=== PATIENT | male | born 1965 | race Caucasian/White ===

== ENCOUNTER 2018-09-03 10:18 | Emergency (ER) | payer OTHER ==
[~2018-09-03] VITALS: Ht 170.2 cm; Wt 78.3 kg
[2018-09-03 10:22] VITALS: BP 150/91; PULSE 77; RESP 18; Ht 170.2 cm; Wt 78.3 kg
--- NOTE | 2018-09-03 10:55 | ERD ---
ER Documentation Chief Complaint Chief Complaint lwer back chronic pain from an injry 2011. worst in the past 3 days HPI 52-year-old male with a history of chronic lower back pain presents ED with complaints of flareup of back pain over the past few days. Patient states that he had an injury that occurred at work in 2011 to his lower back and has had off-and-on pain over since. Patient denies any recent fall or injury to account for back pain today. Rates pain at a 7 out of 10 and states that it radiates down the left posterior leg. Admits to painful range of motion. Denies decreased range of motion, tingling, numbness, lack sensation, fever, chills, bowel/bladder incontinence, weakness, saddle paresthesias history of IV drug abuse and all other symptoms. No known drug allergies. ROS All systems reviewed and are negative except as per history of present illness. Medications Home Meds Active Scripts Naproxen* (Naprosyn*) 500 Mg Tablet, 500 MG PO BID PRN for PAIN AND/OR INFLAMMATION, #30 TAB Prov:AGUILAR VALDEZ PA-C 09/03/18 Methylprednisolone* (Medrol* DOSE PACK) 4 Mg/Dose-Pack Tab.ds.pk, 4 MG PO . DIRECTED for 5 Days, PACKET Prov:AGUILAR VALDEZ PA-C 09/03/18 Hydrocodone/Acetaminophen (Bucklin 5-325 Tablet) 1 Each Tablet, 1 TAB PO Q6H PRN for PAIN, #7 TAB Prov:AGUILAR VALDEZ PA-C 09/03/18 Cyclobenzaprine Hcl* (Cyclobenzaprine Hcl*) 10 Mg Tablet, 10 MG PO TID, #15 TAB Prov:AGUILAR VALDEZ PA-C 09/03/18 Allergies Allergies: Coded Allergies: No Known Allergy (Unverified , 09/03/18) PMhx/Soc History of Surgery: No Anesthesia Reaction: No Hx Neurological Disorder: No Hx Respiratory Disorders: No Hx Cardiac Disorders: No Hx Psychiatric Problems: Yes (ANXIETY) Hx Miscellaneous Medical Probl: No Hx Alcohol Use: No Hx Substance Use: No Hx Tobacco Use: No FmHx Family History: No diabetes Physical Exam Vitals Vital Signs Date Temp Pulse Resp B/P (MAP) Pulse Ox O2 O2 Flow FiO2 Time Delivery Rate 09/03/18 96.8 77 18 150/91 98 10:22 (110) Physical Exam Const: No acute distress Head: Atraumatic Eyes: Normal Conjunctiva ENT: Normal External Ears, Nose and Mouth. Neck: Full range of motion. No meningismus. Resp: Clear to auscultation bilaterally Cardio: Regular rate and rhythm, no murmurs Back: No midline or flank tenderness, there is mild tenderness palpation along the paravertebral muscles in the lumbar spine, no step-off deformities, positive straight leg raise on the left and side Ext: No cyanosis, or edema Neur: Awake and alert Psych: Normal Mood and Affect Results 24 hrs Current Medications Medications Dose Sig/Delagdo Start Time Status Last (Trade) Ordered Route PRN Stop Time Admin Dose Reason Admin 125 mg ONCE ONCE 09/03/18 DC 09/03/18 Methylprednis IM 11:00 09/03/18 10:52 olone Sodium 11:01 Succinate (Solu-Medrol) 1 tab ONCE ONCE 09/03/18 DC 09/03/18 Acetaminophen PO 11:00 09/03/18 10:52 / 11:01 Hydrocodone Bitart (Bucklin (5/325)) Diazepam 5 mg ONCE ONCE 09/03/18 DC 09/03/18 (Valium) PO 11:00 09/03/18 10:52 11:01 Naproxen 500 mg ONCE ONCE 09/03/18 DC 09/03/18 (Naprosyn) PO 11:00 09/03/18 10:58 11:01 Procedures/MDM ER COURSE: The patient was given Bucklin, Valium, naproxen, IM Solu-Medrol The medication was well tolerated and the patient reports improvement in symptoms. The patient was stable throughout ED course. I kept the patient and/or family informed of laboratory and diagnostic imaging results throughout the emergency room course. The patient was promptly evaluated and a treatment plan was devised based on H&P and other data. This plan was discussed with the patient who agreed and had no further questions or concerns prior to discharge. MEDICAL DECISION MAKIN-year-old male presents ED with flareup of back pain times 3 days. Given location of back pain being along the paravertebral muscles and positive strai ght leg raise this is likely musculoskeletal. Discussed possibility of herniated disc and advised patient follow-up with primary care physician to have advanced imaging performed and to possibly see an professional services specialist . History and physical examination other data not consistent with processing including cauda equina syndrome, cord compression, infiltrative etiology, infectious etiology, epidural abscess, fracture, obstructive pyelonephritis, abdominal aortic aneurysm. Vitals are stable and patient can be managed outpatient with close follow-up. Advised patient to follow up with primary care in the next 48 hours. return to ED with any worsening symptoms DISPOSITION PLAN: We discussed follow up with the patient's primary care doctor within 24 to 48 hours. Patient counseled regarding my diagnostic impression and care plan. Prior to discharge all questions answered. Pt agrees with treatment plan and understands strict return precautions. Precautionary instructions provided including instructions to return to the ER if not improving or for any worsening or changing symptoms or concerns. SPECIALIST FOLLOW UP RECOMMENDED: ortho Patient has been advised to follow up with primary care in 1-2 days. Disclaimer: Inadvertent spelling and grammatical errors are likely due to EHR/dictation software use and do not reflect on the overall quality of patient care. Also, please note that the electronic time recorded on this note does not necessarily reflect the actual time of the patient encounter. Blood Pressure Assessment: Patient's blood pressure was elevated (>120/80) but appears stable without evidence of hypertension emergency or urgency. The patient was counseled about the risks of hypertension and urged to pursue outpatient monitoring and therapy within a week with their primary care physician. Departure Diagnosis: Primary Impression: Back pain Back pain location: low back pain Chronicity: chronic Back pain laterality: bilateral Sciatica presence: with sciatica Sciatica lat erality: sciatica of left side Qualified Codes: M54.42 - Lumbago with sciatica, left side; G89.29 - Other chronic pain Condition: Stable Patient Instructions: Back Pain W/ Sciatica Referrals: [facility] Additional Instructions: Paciente aconseja volver a Departamento de urgencias inmediatamente para sntomas nuevos o que empeoran . Paciente aconseja posteriores con el PCP en 1-2 goldberg . Paciente verbaliza la comprehensin y est de acuerdo con el tratamiento y el curso de accin. Si el paciente no tiene ninguna de atencin primaria pueden seguir con [facility] [id number] [place] [address] o LAC + [facility] [address] [place] [id number] AGUILAR VALDEZ PA-C Sep 03, 2018 10:55
[2018-09-03] MEDS ORDERED: MED4DP PO (10:56)
[2018-09-03] MEDS ORDERED: NAPR-985 PO (10:56)
[2018-09-03] MEDS ORDERED: HYDR-4011 PO (10:56)
[2018-09-03] MEDS ORDERED: CYCL10TA7 PO (10:56)
[2018-09-03] MEDS ORDERED: NAPROXEN 500 MG TAB PO ONE (11:00)
[2018-09-03] MEDS ORDERED: DIAZEPAM 5 MG TAB PO ONE (11:00)
[2018-09-03] MEDS ORDERED: METHYLPREDNISOLONE 125 MG INJ IM ONE (11:00)
[2018-09-03] MEDS ORDERED: HYDROCODONE/APAP (5/325) TAB PO ONE (11:00)
== END 2018-09-03 11:31 | disposition home or self-care (01) ==
LOC: FTE 10:18
DX: M54.42 Lumbago with sciatica, left side (principal)
CPT/HCPCS: 96372; J2930; Z7502; Z7610

== ENCOUNTER 2019-01-30 18:14 | Emergency (ER) | payer OTHER ==
[~2019-01-30] VITALS: Ht 170.2 cm; Wt 78.4 kg
[~2019-01-30 18:14] MED LIST: CYCL10TA7 PO; HYDR-4011 PO; MED4DP PO; NAPR-985 PO
[2019-01-30 18:26] VITALS: Ht 170.2 cm; Wt 78.4 kg
[2019-01-30] MEDS ORDERED: SOD CHLORIDE 0.9% 1,000 ML IV STA (21:06)
[2019-01-30] MEDS ORDERED: ONDANSETRON 4 MG INJ IV STA (21:06)
[2019-01-30] MEDS ORDERED: morphine 4 MG/ML VIAL IV STA (21:06)
--- NOTE | 2019-01-30 21:07 | ERD ---
ER Documentation Chief Complaint Chief Complaint abd pain radiating to back +n/v/d since last night. HPI 53-year-old male presenting with lower abdominal pain since last night with associated nausea and nonbloody and nonbilious vomiting. Denies any associated fever, chills, diarrhea, but does endorse some constipation. Currently the pain is constant, radiating to his lower back, 8 out of 10, with no alleviating factors. Exacerbated by walking and movement. ROS All systems reviewed and are negative except as per history of present illness. Medications Home Meds Active Scripts Ondansetron (Ondansetron Odt) 4 Mg Tab.rapdis, 4 MG PO Q6H PRN for NAUSEA AND/OR VOMITING, #10 TAB Prov:ABY HESTER MD 01/30/19 Metronidazole* (Flagyl*) 500 Mg Tablet, 500 MG PO TID for 10 Days, TAB Prov:ABY HESTER MD 01/30/19 Ciprofloxacin Hcl* (Ciprofloxacin Hcl*) 500 Mg Tablet, 500 MG PO BID for 10 Days, TAB Prov:ABY HESTER MD 01/30/19 Polyethylene Glycol* (Miralax*) 17 Gm Powd.pack, 17 GM PO DAILY, #7 Prov:ABY HESTER MD 01/30/19 Cyclobenzaprine Hcl* (Cyclobenzaprine Hcl*) 10 Mg Tablet, 10 MG PO TID, #15 TAB Prov:AGUILAR VALDEZ PA-C 09/03/18 Discontinued Scripts Naproxen* (Naprosyn*) 500 Mg Tablet, 500 MG PO BID PRN for PAIN AND/OR INF LAMMATION, #30 TAB Prov:AGUILAR VALDEZ PA-C 09/03/18 Methylprednisolone* (Medrol* DOSE PACK) 4 Mg/Dose-Pack Tab.ds.pk, 4 MG PO . DIRECTED for 5 Days, PACKET Prov:AGUILAR VALDEZ PA-C 09/03/18 Hydrocodone/Acetaminophen ([place] 5-325 Tablet) 1 Each Tablet, 1 TAB PO Q6H PRN for PAIN, #7 TAB Prov:AGUILAR VALDEZ PA-C 09/03/18 Allergies Allergies: Coded Allergies: No Known Allergy (Unverified , 09/03/18) PMhx/Soc History of Surgery: Yes (Shoulder surgery) Anesthesia Reaction: No Hx Neurological Disorder: No Hx Respiratory Disorders: No Hx Cardiac Disorders: No Hx Psychiatric Problems: Yes (ANXIETY, depression) Hx Miscellaneous Medical Probl: No Hx Alcohol Use: No Hx Substance Use: No Hx Tobacco Use: No Smoking Status: Never smoker FmHx Family History: No diabetes Physical Exam Vitals Vital Signs Date Temp Pulse Resp B/P (MAP) Pulse Ox O2 O2 Flow FiO2 Time Delivery Rate 01/30/19 98.4 86 22 144/111 97 Room Air 23:20 (122) 01/30/19 55 15 166/99 100 Room Air 22:49 (121) 01/30/19 98.1 62 16 162/106 97 18:26 (124) Physical Exam Const: No acute distress Head: Atraumatic Eyes: Normal Conjunctiva ENT: Normal External Ears, Nose and Mouth. Neck: Full range of motion. No meningismus. Resp: Clear to auscultation bilaterally Cardio: Regular rate and rhythm, no murmurs Abd: Soft, diffuse lower abdominal tenderness to palpation with no rebound or guarding. Non distended. Normal bowel sounds Skin: No petechiae or rashes Back: No midline or flank tenderness Ext: No cyanosis, or edema Neur: Awake and alert Psych: Normal Mood and Affect Result Diagram: 01/30/19211301/30/192113 Results 24 hrs Laboratory Tests Test 01/30/19 20:08 01/30/19 21:14 Urine Color YELLOW Urine Clarity CLEAR Urine pH 5.0 Urine Specific [place] 1.018 Urine Ketones NEGATIVE mg/dL Urine Nitrite NEGATIVE mg/dL Urine Bilirubin NEGATIVE mg/dL Urine Urobilinogen NEGATIVE mg/dL Urine Leukocyte Esterase NEGATIVE Nicholas/ul Urine Microscopic RBC 1 /HPF Urine Microscopic WBC 1 /HPF Urine Mucus MODERATE /HPF Urine Hemoglobin 1+ mg/dL Urine Glucose NEGATIVE mg/dL Urine Total Protein NEGATIVE mg/dl White Blood Count 9.2 10^3/ul Red Blood Count 5.01 10^6/ul Hemoglobin 14.4 g/dl Hematocrit 44.2 % Mean Corpuscular Volume 88.2 fl Mean Corpuscular Hemoglobin 28.7 pg Mean Corpuscular Hemoglobin Concent 32.6 g/dl Red Cell Distribution Width 13.0 % Platelet Count 301 10^3/UL Mean Platelet Volume 10.2 fl Immature Granulocytes % 0.300 % Neutrophils % 69.6 % Lymphocytes % 23.3 % Monocytes % 5.9 % Eosinophils % 0.2 % Basophils % 0.7 % Nucleated Red Blood Cells % 0.0 /100WBC Immature Granulocytes # 0.030 10^3/ul Neutrophils # 6.4 10^3/ul Lymphocytes # 2.2 10^3/ul Monocytes # 0.5 10^3/ul Eosinophils # 0.0 10^3/ul Basophils # 0.1 10^3/ul Nucleated Red Blood Cells # 0.0 10^3/ul Sodium Level 143 mmol/L Potassium Level 4.0 mmol/L Chloride Level 104 mmol/L Carbon Dioxide Level 30 mmol/L Anion Gap 9 Blood Urea Nitrogen 9 mg/dl Creatinine 0.77 mg/dl Est Glomerular Filtrat Rate mL/min > 60 mL/min Glucose Level 114 mg/dl Calcium Level 9.5 mg/dl Total Bilirubin 0.6 mg/dl Direct Bilirubin 0.00 mg/dl Indirect Bilirubin 0.6 mg/dl Aspartate Amino Transf (AST/SGOT) 28 IU/L Alanine Aminotransferase (ALT/SGPT) 24 IU/L Alkaline Phosphatase 118 IU/L Total Protein 8.8 g/dl Albumin 4.9 g/dl Globulin 3.90 g/dl Albumin/Globulin Ratio 1.25 Lipase 49 U/L Current Medications Medications Dose Sig/Delgado Start Time Status Last (Trade) Ordered Route PRN Stop Time Admin Dose Reason Admin Sodium 1,000 ml @ Q1H STAT 01/30/19 DC 01/30/19 Chloride 1,000 mls/hr IV 21:06 01/30/19 21:16 22:05 Morphine 4 mg ONCE STAT 01/30/19 DC 01/30/19 Sulfate IV 21:01/30/19 21:15 (morphine) 21:08 Ondansetron 4 mg ONCE STAT 01/30/19 DC 01/30/19 HCl (Zofran IV 21:06 01/30/19 21:15 Inj) 21:08 Procedures/MDM EMERGENT LABS AND DIAGNOSTIC STUDIES: Lab Results above were reviewed and interpreted by me. CBC: no anemia or evidence of infection CMP: No evidence of clinically significant electrolyte abnormality, acidosis, re nal failure, hypoglycemia, liver disease, or biliary obstruction UA shows microscopic hematuria, no evidence of acute infection Radiology Results as interpreted by Radiology below were reviewed by Rafal Hester MD: CT abdomen and pelvis: IMPRESSION: 1. Mild left colonic diverticulosis with subtle findings which could reflect early acute diverticulitis at the distal descending colon. The bowel is unobstructed without evidence of perforation or abscess, and the appendix appears normal. 2. Punctate nonobstructive left nephrolithiasis without hydronephrosis. 3. Mild prostatomegaly impressing on the bladder neck. Correlation with clinical exam and PSA values recommended. 4. Redemonstrated mild multilevel spondylotic changes. Initial Nursing notes reviewed. Previous Medical Records requested via the Electronic Health Record. EMERGENCY DEPARTMENT COURSE / MEDICAL DECISION MAKING: Patient is presenting with lower abdominal pain with nausea and vomiting but no other related symptoms. He is afebrile and hemodynamically stable. CT shows evidence of diverticulitis. Recommended starting treatment with oral antibiotics, dual therapy with Flagyl and Cipro. Patient tolerating fluids by mouth. Pain well controlled. He is stable for outpatient treatment. Return precautions discussed. Importance of following up with his primary care doctor for outpatient colonoscopy discussed after treatment complete. Patient's blood pressure was elevated (>120/80) but appears stable without evidence of hypertensive emergency or urgency. The patient was counseled about the risks of hypertension and urged to pursue outpatient monitoring and therapy within a week with their primary care physician. Departure Diagnosis: Primary Impression: Diverticulitis Condition: Stable ABY HESTER MD Jan 30, 2019 21:07
[2019-01-30] MEDS ORDERED: POLY17PO6 PO (23:07)
[2019-01-30] MEDS ORDERED: CIPR500T4 PO (23:11)
[2019-01-30] MEDS ORDERED: ONDA4TAB14 PO (23:11)
[2019-01-30] MEDS ORDERED: METR500T PO (23:11)
[2019-01-30 23:20] VITALS: BP 144/111; PULSE 86; RESP 22
== END 2019-01-30 23:39 | disposition home or self-care (01) ==
LOC: E/R 18:14
DX: K57.32 Diverticulitis of large intestine without perforation or abscess without bleeding (principal); K59.00 Constipation, unspecified
CPT/HCPCS: 36415; 74176; 80053; 81001; 83690; 85025; 96374; 96375; J2270; J2405; J7030; Z7502